=== PATIENT | male | born 1960 | race Caucasian/White ===

== ENCOUNTER → 2023-06-19 07:38 | Outpatient (CLI) | payer OTHER, MEDICAID, SELFPAY ==
--- NOTE | 2023-06-20 08:44 | DI.NM.S_ITS ---
DATE OF SERVICE: 06/19/2023 PROCEDURE PERFORMED: Exercise treadmill stress test without imaging. ORDERING PROVIDER: DILLON Giron. INDICATIONS: The patient is a 63-year-old hypertensive male with hyperlipidemia, exertional dyspnea, and atypical chest discomfort. FINDINGS: 1. The patient was able to exercise for 6 minutes and 1 second on a standard Karri protocol, suggesting moderately reduced exercise capacity with an AMANDA of +22%, achieving 7.0 METS. 2. He had a moderately accelerated heart rate response to exercise with a resting heart rate of 100 BPM, increasing to 138 BPM after 3 minutes of exercise, and achieving a maximum heart rate of 161 BPM (103% of his predicted maximum) at peak exercise. He had a hypertensive blood pressure response to exercise with a resting blood pressure of 142/84, increasing to a maximum of 222/112. His oxygen saturation remained >96% throughout the study. 3. He had no chest discomfort but had limiting dyspnea. 4. His resting ECG showed sinus rhythm with normal ST segments. There were no significant ST-segment shifts or arrhythmias. IMPRESSION: 1. Normal exercise treadmill stress test for ischemia. 2. Moderately reduced exercise capacity without angina but with limiting dyspnea despite normal oxygen saturation. He had an accelerated heart rate response and a hypertensive blood pressure response to exercise. Luis Vazquez - MARY/janice/STEWART doc#: [id number]/job#: [id number] dd: 06/19/2023 16:46:00 dt: 06/19/2023 23:37:00 DICTATING /COPIES TO: Beau Bowers MD; DILLON Giron COPIES MNE: PADMINI;
== END ==
PROVIDERS: PCP Registered Nurse Diabetes Educator; Referring Provider Registered Nurse Diabetes Educator; Visit Provider Registered Nurse Diabetes Educator
DX: R07.89 Other chest pain (principal); R06.09 Other forms of dyspnea
CPT/HCPCS: 93017

== ENCOUNTER → 2023-07-04 06:35 | Outpatient (CLI) | payer OTHER, MEDICAID, SELFPAY | LOC: RESP 06:36 | PROVIDERS: PCP Registered Nurse Diabetes Educator; Referring Provider Registered Nurse Diabetes Educator; Visit Provider Registered Nurse Diabetes Educator | DX: R06.9 Unspecified abnormalities of breathing (principal); Z87.891 Personal history of nicotine dependence; J98.8 Other specified respiratory disorders | CPT/HCPCS: 94060; 94726; 94729 ==

== ENCOUNTER → 2023-11-01 06:52 | Outpatient (CLI) | payer OTHER, MEDICAID, SELFPAY ==
--- NOTE | 2023-11-01 06:53 | DI.CT.S_ITS ---
PROCEDURE: CT LUNG LOW DOSE SCREENING INDICATIONS: eval, 50+pack year history smoking TECHNIQUE: Noncontrast 2.0-2.5 mm thick sections acquired from the pulmonary apices to the posterior costophrenic angles. 7 mm thick axial MIP, and 5 mm coronal and sagittal reformats were then acquired. For radiation dose reduction, the following was used: automated exposure control, adjustment of mA and/or kV according to patient size. COMPARISON: None. FINDINGS: Image quality: Diagnostic. Lower Neck: No enlarged lymph nodes. Axillae: No enlarged lymph nodes. Chest Wall: Unremarkable. Bones: No aggressive appearing osseous lesion. Mild degenerative changes. Lungs and Pleura: No pneumothorax or pleural effusions. No consolidation or suspicious nodules. A few pulmonary nodules measuring at 0.4 cm or less. For example left major fissure 0.3 cm, (3/120). A few calcified granuloma. Heart: Heart size is normal. Three-vessel coronary artery calcifications. No pericardial effusion. Thoracic Vessels: The aorta and pulmonary arteries demonstrate normal size. Mediastinum and [place]: No enlarged lymph nodes. Esophagus: No wall thickening. No hiatal hernia. Upper Abdomen: Visualized upper abdomen solid organs and bowel loops appear normal. Calcified granuloma in the liver. IMPRESSION: No suspicious pulmonary nodules. LUNG-RADS 2; continued annual screening, if eligible. Clinically Significant Non-pulmonary Findings: Severe coronary artery calcifications. Dictated by: Aden Sesay M.D. on 11/01/2023 at 8:47 Approved by: Aden Sesay M.D. on 11/01/2023 at 8:51
== END ==
PROVIDERS: PCP Registered Nurse Diabetes Educator; Referring Provider Registered Nurse Diabetes Educator; Visit Provider Registered Nurse Diabetes Educator
DX: Z12.2 Encounter for screening for malignant neoplasm of respiratory organs (principal); Z87.891 Personal history of nicotine dependence; I25.10 Atherosclerotic heart disease of native coronary artery without angina pectoris
CPT/HCPCS: 71271

== ENCOUNTER → 2023-12-11 06:46 | Outpatient (CLI) | payer OTHER, MEDICAID, SELFPAY ==
--- NOTE | 2023-12-11 06:48 | DI.ECHO.S_ITS ---
[facility] : : [address] : : [place] : : [id number] : : Phone: [phone] Echocardiogram Report + + :Name: MELISSA LUTZ Study Date: 12/11/2023 Height: 70 in : :[facility] ReadingLocation: Weight: 200 lb : : Gender: Male BSA: 2.1 m2 : :: 1960 Age: 63 yrs BP: 147/93 mmHg: :Reason For Study: DYSPNEA ON EXERTION : :Ordering Physician: FLOR, : :APRIL Performed By: Kina Ramos : :Referring: APRIL RAY : + + Interpretation Summary The left ventricle is normal in size and wall thickness. Left ventricular systolic function appears normal without focal wall motion abnormalities. The ejection fraction is estimated to be 55-60%. Diastolic parameters suggest a relaxation abnormality of the left ventricle, consistent with probable normal filling pressures. The right ventricle is normal in size and function. The left atrial size is normal. There is no significant valvular heart disease. The aortic root is normal size. Procedure: A two-dimensional transthoracic echocardiogram with color flow and Doppler was performed. The study quality was technically adequate. There is no prior echocardiogram noted for this patient. The patient was in sinus rhythm with heart rates between 68-84 bpm during the exam. Left Ventricle: The left ventricle is normal in size and wall thickness. Left ventricular systolic function appears normal without focal wall motion abnormalities. The ejection fraction is estimated to be 55-60%. Diastolic parameters suggest a relaxation abnormality of the left ventricle, consistent with probable normal filling pressures. Right Ventricle: The right ventricle is normal in size and function. Atria: The left atrial size is normal. Right atrial size is normal. There is no Doppler evidence for an interatrial shunt. Mitral Valve: The mitral valve is normal in structure and function. There is trace mitral regurgitation. Aortic Valve: The aortic valve is trileaflet. The aortic valve opens well. There is mild aortic valve sclerosis. There is no aortic valve stenosis. No aortic regurgitation is present. Tricuspid Valve: The tricuspid valve is normal in structure and function. No tricuspid regurgitation. Pulmonary artery pressures cannot be estimated because of the lack of a measurable TR jet velocity. Pulmonic Valve: The pulmonic valve is not well visualized. There is no pulmonic valvular regurgitation. There is no significant valvular heart disease. Great Vessels: The aortic root is normal size. The dimensions of the ascending aorta are normal. The IVC is of normal diameter and collapses greater than 50% with a sniff. This suggests a low right atrial pressure of 3 mm Hg. Pericardium/ Pleura There is no pericardial effusion. There is no pleural effusion. MMode/2D Measurements & Calculations LVIDd: 4.4 cm LVOT diam: 2.0 cm LVIDs: 3.1 cm Ao root diam: 3.2 cm FS: 28.9 % asc Aorta Diam: 3.1 cm IVSd: 0.98 cm Ao Arch Diam (Prox Trans): 2.9 cm LVPWd: 1.0 cm LV ambrose. diameter/BSA (cm/m^2): 2.1 LV sys. diameter/BSA (cm/m^2): 1.5 LA A2 area: 20.1 cm2 RA long axis: 5.0 cm LA A4 area: 15.2 cm2 RA area: 15.0 cm2 LA length (vol): 5.2 cm RA vol: 38.4 ml LA vol: 50.0 ml RA : 18.4 ml/m2 LA vol index: 23.9 ml/m2 IVC diam: 1.4 cm RVD1 (basal): 3.8 cm RVD2 (mid): 3.1 cm TAPSE: 1.7 cm Doppler Measurements & Calculations Ao V2 max: 123.4 cm/sec LVOT Max Luke: 128.0 cm/sec Ao V2 mean: 86.8 cm/sec LV V1 max P.6 mmHg Ao max P.1 mmHg LV V1 VTI: 25.1 cm Ao mean P.4 mmHg LATASHA(I,D): 3.0 cm2 Ao V2 VTI: 26.1 cm LATASHA(V,D): 3.2 cm2 sev ratio: 0.96 LATASHA indexed to BSA (cm^2/m^2): 1.4 MV E max luke: 61.5 cm/sec PA V2 max: 86.1 cm/sec MV A max luke: 82.5 cm/sec PA V2 mean: 61.1 cm/sec MV E/A: 0.75 PA mean P.7 mmHg Med Peak E' Luke: 6.3 cm/sec PA pr(Accel): 34.5 mmHg E/E' med: 9.8 Lat Peak E' Luke: 6.9 cm/sec E/E' lat: 8.9 E/e' average: 9.4 MV dec time: 0.31 sec SV(LVOT): 77.6 ml Reading Physician:08:50 AM
== END ==
LOC: ECHO 06:47
PROVIDERS: PCP Registered Nurse Diabetes Educator; Referring Provider Registered Nurse Diabetes Educator; Visit Provider Registered Nurse Diabetes Educator
DX: I35.8 Other nonrheumatic aortic valve disorders (principal); R06.09 Other forms of dyspnea; I10 Essential (primary) hypertension
CPT/HCPCS: 93306